=== PATIENT | male | born 1980 | race Caucasian/White ===

== ENCOUNTER 2023-04-12 17:36 | Emergency (ER) | payer OTHER, SELFPAY ==
[2023-04-12 18:05] VITALS: BP 135/84; PULSE 77; RESP 16; TEMP 36.8; O2SAT 100
[2023-04-12 18:10] VITALS: BP 135/84; PULSE 77; RESP 16; TEMP 36.8; O2SAT 100
--- NOTE | 2023-04-12 18:35 | ED.URI ---
HPI - URI/Sore Throat General Chief Complaint: Upper Respiratory Infection Stated Complaint: COVID+ Time Seen by Provider: 04/12/23 18:30 Source: patient, RN notes reviewed and old records reviewed Mode of arrival: ambulatory Limitations: no limitations History of Present Illness HPI Narrative: 43-year-old male who presents to [facility] accompanied by sister with complaints of testing positive on home test yesterday but his work states that he has to have verified test from medical facility. Patient left work early on due to cough and not feeling well. He reports that he did have fever on Thursday but has not had one since. Patient reports that he does feel better still has some soreness to throat and some cough, is taking OTC medication for cough and he has been eating and drinking well. MD elicited complaint: cough, sore throat and other (positive for COVID) Onset (ago): day(s) (4 days) Severity: mild Able to tolerate fluids by mouth: Yes Treatments prior to arrival: other (NyQuil vicks rub) Related Data Home Medications Medication Instructions Recorded Confirmed duloxetine 60 mg capsule,delayed 60 mg PO DAILY 04/12/23 04/12/23 release rosuvastatin 10 mg tablet 10 mg PO DAILY 04/12/23 04/12/23 Allergies Allergy/AdvReac Type Severity Reaction Status Date / Time No Known Allergies Allergy Verified 04/12/23 18:08 Review of Systems Review of Systems: CONSTITUTIONAL: Denies malaise, chills, sweats, no fever since Thursday 2 days ago EYES: Denies visual changes, redness, or discharge. ENT: Reports rhinorrhea, congestion,no sinus pain, no otalgia positive for sore throat. CARDIOVASCULAR: Denies chest pain, palpitations, or edema. RESPIRATORY: Reports cough.? Denies dyspnea. GASTROINTESTINAL: Denies abdominal pain, nausea, vomiting, diarrhea SKIN: Denies rash or itching. MUSCULOSKELETAL: positive for myalgia which has resolved NEUROLOGIC: Denies headache. All systems reviewed & are unremarkable except as noted in HPI and below PMFSH Past Medical History Medical History (Updated 04/15/23 @ 09:10 by Angelique Burch NP) Deaf Depression Hyperlipidemia Surgical History Surgical History (Updated 04/15/23 @ 09:05 by Angelique Burch NP) Hx of cholecystectomy Social History Social History (Updated 04/15/23 @ 09:06 by Angelique Burch NP) Smoking status: Never smoker Alcohol intake: current Alcohol use details: rare social Substance use type: does not use Additional occupation/education comments: works at [employer] Gender identity (if verbalized by the patient): Male Comments At time of signature, agree with nursing past medical, surgical, social and family history. There is no relevant family history pertinent to the presenting complaint Exam Narrative: GENERAL: Well-appearing, well-nourished, and in no acute distress. HEAD: Normocephalic EYES: PERRLA, conjunctivae clear ENT: Nares clear, turbinates edematous and erythematous, clear discharge. Mucous membranes moist. TM pearly torres with dull light reflex bilaterally; no tragal tenderness. Oropharynx erythematous without lesions. Tonsils mildly enlarged and without exudate, no drooling, no hoarseness, no trismus, uvula midline.post nasal drainge NECK: Supple. No lymphadenopathy CHEST: Clear to auscultation, breath sounds equal. No wheezing, rhonchi, rales, or stridor. No respiratory distress, speaks in full sentences.cough noted SAO2 100% on room air HEART: Regular rate and rhythm. No murmur heard. SKIN: Warm, dry, no rash. NEURO: Alert and oriented x3. PSYCH: Normal mood and affect Course Course Emergency Course: Patient is aware of diagnosis, understands and agrees to treatment plan.? Anticipatory guidance given.? Patient agrees to follow-up as directed and is aware of reasons to seek care at the emergency department. Portions of this record may have been created with voice recognition
== END 2023-04-12 19:11 | disposition home or self-care (01) ==
PROVIDERS: Emergency Provider Registered Nurse; PCP Physician Assistant
DX: U07.1 COVID-19 (principal); E78.5 Hyperlipidemia, unspecified; H91.90 Unspecified hearing loss, unspecified ear
CPT/HCPCS: 87426; 99213; C9803; G0463